=== PATIENT | male | born 2005 | race Caucasian/White ===

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

== ENCOUNTER 2025-02-11 21:23 | Emergency (ER) | payer MEDICAID, SELFPAY ==
--- OUTSIDE RECORDS SUMMARY | 2025-02-11 21:26 | XMS_ITS | Clinical Summary ---
Author Organization [facility] Address [address] [place] [address] Care Team Providers Care Solar Energy Technician Name Role Phone Heraclio Rios MD Primary Care Prov ider Allergies No known active allergies Medications dextroamphetami ne-amphetamine XR (ADDERALL XR) 20 mg 24 hr capsule Take 1 capsule (20 mg total) by mouth every morning Active sertraline (ZOLOFT) 25 mg tabletIndicatio ns:Anxiety with Depression Take 10 mg by mouth daily Active neomycin-polymy kaylah B-dexAMETHasone (MAXITROL) 3.5 mg/g-10,000 unit/g-0.1 % ointment Apply 1/2 in bead to both eyes twice daily for 1 week. 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 Medicine Ophthalmology [address] [place] [id number] Juan F Beckman 11/19/2024 Telephone 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 (Boys, 2-20 Years) Last Filed Vital Signs Vital Sign Reading Time Taken Comments Blood Pressure 132/69 04/26/2024 3:24 PM CDT Pulse 67 04/26/2024 3:39 PM CDT Temperature 36.4 C (97.5 F) 04/26/2024 3:24 PM CDT Respiratory Rate 16 04/26/2024 3:24 PM CDT Oxygen Saturation 98% 04/26/2024 3:39 PM CDT Inhaled Oxygen Concentration - - Weight 88.5 kg (195 lb 1.7 oz) 04/27/19 12:30 PM CDT Height 176.3 cm (5' 9.41) 04/26/2024 1 2:30 PM CDT Body Mass Index 28.47 04/26/2024 12:30 PM CDT Body Mass Index Percentile 92.85% 04/26 12:30 PM CDT Growth Chart: [facility] (Boys, 2-2 0 Years) Plan of Treatment Health Maintenance Due Date Last Done Comments Depression Screening 2005 Hepatitis C Screening 2005 HPV Vaccines (2 - Male 2-dose series) 03/24/2017 09/21/2016 Meningococcal B Vaccine (1 of 2 - Standard) 2021 Regular Well Visit/Exam 18-64 06/15/2023 Influenza Vaccine (#1) 2024 DTaP/Tdap/Td Vaccine (6 - Td or Tdap) 09/21/2026 09/21/2016, 09/07/2010, 04/05/2008, Additional history exists Pneumococcal vaccine <65 Aged Out 2005 No longer eligible based on patient's age to complete this topic Hepatitis B Screening Completed 06/30/2007 , 2005, 2005 Varicella Vaccines Completed 09/07/2010, 04/05/2008 Meningococcal Vaccine Completed 11/27/2022, 017 Insurance [facility] Advance Directives For more information, please contact: [phone] Documents on File Type Date Recorded Patient Partner Integration Planner Expl anation ADVANCE DIRECTIVE 04/26/2024 12:18 PM Martha r of Charge Entry Specialist-Medical Care Teams Solar Energy Technician Relationship Specialty Start Date End Date Heraclio Rios MD PCP - General Family Medicine 04/06/24
[2025-02-11 21:28] VITALS: BP 138/69; PULSE 100; RESP 16; TEMP 36.6; O2SAT 99
--- NOTE | 2025-02-11 22:15 | PC.NURSE ---
Patient reporting eye is less red and feeling better-mothers plan is to get eye wash and follow up with eye Dr tomorrow if needed
== END 2025-02-11 23:55 | disposition left against medical advice (07) ==
LOC: ANHED 22:22
PROVIDERS: PCP Family Medicine
DX: H57.11 Ocular pain, right eye (principal)
CPT/HCPCS: 99199